=== PATIENT | female | born 1945 ===

== ENCOUNTER 2016-11-05 12:07 | Inpatient (IN) | payer OTHER, MEDICARE ==
--- NOTE | 2016-11-05 12:17 | ED PDOC ---
HPI: General Adult Time Seen by Provider: 11/05/16 12:16 Chief Complaint (Nursing): Trauma Chief Complaint (Provider): fall History Per: Patient, EMS Additional Complaint(s): 70 year old female presents to ED for eval of fall this morning. Patient was walking into a store when she tripped on a step in the entrance way falling backward. She injured her head, low back and left hip. Fall was witnessed by her daughter and grandson and she did not sustain LOC. She denies dizziness or syncope prior to fall. Patient arrives via ambulance and has been unable to walk since time of fall. Past Medical History Reviewed: Historical Data, Nursing Documentation, Vital Signs Vital Signs: Last Vital Signs Temp 98 F 11/06/16 09:31 Pulse 73 11/06/16 09:31 Resp 20 11/06/16 09:31 BP 97/58 L 11/06/16 09:31 Pulse Ox 97 11/06/16 09:31 - Medical History PMH: Hypercholesterolemia, Hypothyroidism, Osteoporosis - Surgical History Surgical History: Appendectomy, Cholecystectomy, Hernia Repair Other surgeries: bilateral knee replacement - Family History Family History: States: No Known Family Hx - Living Arrangements Living Arrangements: With Family - Social History Current smoker - smoking cessation education provided: No Alcohol: None Drugs: Denies - Home Medications Home Medications: Ambulatory Orders Medication Instructions Recorded Alendronate Sodium [Binosto] 70 mg PO QWK 10/21/14 Aspirin [Aspirin EC] 81 mg PO DAILY 10/21/14 Levothyroxine Sodium 100 mcg PO ACB 10/21/14 Atorvastatin [Lipitor] 10 mg PO HS 11/05/16 Bismuth Subsalicylate [Pepto 262 mg PO DAILY PRN 11/05/16 Bismol] Dorzolamide HCl/Timolol Maleat 1 drop OU BID 11/05/16 [Dorzolamide-Timolol Eye Drops] Ergocalciferol (Vitamin D2) 50,000 unit PO QWK 11/05/16 [Vitamin D2] Latanoprost 0.005% Opht [Xalatan 1 drop OU HS 11/05/16 Opht] Loperamide [Imodium] 2 mg PO TID PRN 11/05/16 Montelukast [Singulair] 10 mg PO DAILY 11/05/16 Nabumetone [Relafen] 500 mg PO BID PRN 11/05/16 Wayan-3 Fatty Acids/Fish Oil [Eql 1 cap PO BID 11/05/16 Wayan-3 Fish Oil 1,000 mg] Omeprazole 40 mg PO DAILY 11/05/16 Oxybutynin XL [Ditropan XL] 5 mg PO DAILY 11/05/16 - Allergies Allergies/Adverse Reactions: Allergies Allergy/AdvReac Type Severity Reaction Status Date / Time No Known Allergies Allergy Verified 10/21/14 20:31 Review of Systems ROS Statement: Except As Marked, All Systems Reviewed And Found Negative Cardiovascular: Negative for: Chest Pain Gastrointestinal: Negative for: Nausea Musculoskeletal: Positive for: Other (low back pain, left hip pain s/p fall) Neurological: Positive for: Other (head injury with no LOC s/p trip and fall, denies dizziness or syncope prior to fall) Physical Exam - Reviewed Nursing Documentation Reviewed: Yes Vital Signs Reviewed: Yes - Physical Exam Appears: Positive for: Well, Non-toxic, No Acute Distress Head Exam: Positive for: ATRAUMATIC, NORMAL INSPECTION Skin: Negative for: Rash Eye Exam: Positive for: Normal appearance, EOMI, PERRL Neck: Positive for: Normal, Painless ROM, Supple. Negative for: Pain On Movement Of Neck Cardiovascular/Chest: Positive for: Regular Rate, Rhythm Respiratory: Positive for: Normal Breath Sounds. Negative for: Respiratory Distress Gastrointestinal/Abdominal: Positive for: Soft. Negative for: Tenderness, Distended, Guarding Back: Positive for: Vertebral Tenderness (lumbar region) Extremity: Positive for: Other (tenderness left lateral hip with decreased ROM, normal distal sensation left lower extremity) Neurologic/Psych: Positive for: Alert, Oriented - Laboratory Results Result Diagrams: 11/05/16 17:07 11/05/16 17:07 - ECG O2 Sat by Pulse Oximetry: 98 Pulse Ox Interpretation: Normal - Other Rad CT head X-Ray: Read By Radiologist X-Ray Interpretation: normal head CT L/S Spine X-ray X-Ray: Interpreted by Me, Viewed By Me X-Ray Interpretation: marked degenerative changes, no fx, no dis Left hip and pelvis x-ray X-Ray: Interpreted by Me, Viewed By Me X-Ray Interpretation: no fx, no dis CT L/S Spine X-Ray: Read By Radiologist X-Ray Interpretation: see below CT left hip X-Ray: Read By Radiologist X-Ray Interpretation: see below Medical Decision Making Medical Decision Makin70 year old here for eval s/p trip and fall Plan: PO tylenol CT head L/S Spine X-ray Left hip and pelvis x-ray X-rays do not show obvious fracture or dislocation but patient cannot put any weight on left leg, has h/o osteoporosis. CT lumbar spine, pelvis and left hip ordered to rule out occult fracture. Patient states tylenol did not help the pain, she was given toradol [address] Left hip: FINDINGS: Bones/joints: There is a fracture through the right pubic body. Soft tissues: There is a hematoma in the left iliacus muscle. IMPRESSION: Fracture of the right pubic body. The fracture may be the source of the hematoma in the left iliacus muscle. A CT scan of the entire pelvis might be helpful. CT LS Spine: FINDINGS: Vertebrae: There is a fracture through the anterior wall of the left sacral ala. No fractures in the lumbar spine. The vertebral body heights are maintained. Normal alignment. Discs/spinal canal/neural foramina: No acute findings. No spinal canal stenosis. Soft tissues: Unremarkable. IMPRESSION: 1. Fracture of the left sacral ala. 2. No lumbar spine fracture. Fracture noted. IV established, labs drawn, patient was given 4 mg IV morphine and 4 mg IV zofran as well as IVF. PMD is Dr. Bipin Noe in [place] whose patients are admitted by Dr. Pedroza. I spoke with Dr. Pedroza and he states to admit patient to med/surg. Case was discussed with ortho group controller, Dr. Sheppard who will see patient while she is admitted. Dedicated CT pelvis order further eval of pubic bone fracture. Cortes catheter ordered along with UA and Urine culture. Disposition - Clinical Impression Clinical Impression: Pubic bone fracture, Sacral fracture - Patient ED Disposition Is Patient to be Admitted: Yes - Disposition Disposition Time: 17:04 Condition: FAIR - Pt Status Changed To: Hospital Disposition Of: Inpatient - Admit Certification Admit to Inpatient:: After my assessment, the patient will require hospitalization for at least two midnights. This is because of the severity of symptoms shown, intensity of services needed, and/or the medical risk in this patient being treated as an outpatient. - POA Present On Arrival: None Results - Lab Results Lab Results: 11/05/16 11/05/16 11/05/16 18:11 17:07 17:07 WBC 19.1 H D RBC 4.43 Hgb 13.3 Hct 39.4 MCV 88.9 MCH 30.0 MCHC 33.8 RDW 13.5 Plt Count 228 MPV 8.5 Neut % (Auto) 82.3 H Lymph % (Auto) 12.4 L [place] % (Auto) 4.5 Eos % (Auto) 0.1 Baso % (Auto) 0.7 Neut # 15.7 H Lymph # 2.4 [place] # 0.9 H Eos # 0.0 Baso # 0.1 Sodium 139 Potassium 4.0 Chloride 109 H Carbon Dioxide 20 L Anion Gap 14 BUN 16 Creatinine 0.5 L Est GFR ( Amer) > 60 Est GFR (Non-Af Amer) > 60 Random Glucose 165 H Calcium 9.2 Total Bilirubin 1.4 H AST 55 H D ALT 51 Alkaline Phosphatase 63 Total Protein 7.0 Albumin 4.0 Globulin 3.1 Albumin/Globulin Ratio 1.3 Urine Color Yellow Urine Clarity Slighty-cloudy Urine pH 5.0 Ur Specific [place] 1.021 Urine Protein Negative Urine Glucose (UA) Neg Urine Ketones Trace Urine Blood Moderate Urine Nitrate Positive H Urine Bilirubin Negative Urine Urobilinogen 0.2-1.0 Ur Leukocyte Esterase Neg Urine RBC (Auto) 2 Urine Microscopic WBC < 1 Ur Squamous Epith Cells < 1 Urine Bacteria Occ H
--- NOTE | 2016-11-05 13:24 | CT ---
PROCEDURE: CT HEAD WITHOUT CONTRAST. HISTORY: trauma COMPARISON: None available. TECHNIQUE: Axial computed tomography images were obtained through the head/brain without intravenous contrast. Radiation dose: Total exam DLP = 846 mGy-cm. This CT exam was performed using one or more of the following dose reduction techniques: Automated exposure control, adjustment of the mA and/or kV according to patient size, and/or use of iterative reconstruction technique. FINDINGS: HEMORRHAGE: No intracranial hemorrhage. BRAIN: No mass effect or edema. No atrophy or chronic microvascular ischemic changes. VENTRICLES: Unremarkable. No hydrocephalus. CALVARIUM: Unremarkable. PARANASAL SINUSES: Unremarkable as visualized. No significant inflammatory changes. MASTOID AIR CELLS: Unremarkable as visualized. No inflammatory changes. OTHER FINDINGS: None. IMPRESSION: Normal CT of the Head.
--- NOTE | 2016-11-05 15:14 | RAD ---
HISTORY: trauma COMPARISON: No prior FINDINGS: BONES: Normal. No fracture. JOINTS: Normal. No osteoarthritis. SOFT TISSUE: Normal. OTHER FINDINGS: None . IMPRESSION: Normal Bone Xray.
--- NOTE | 2016-11-05 15:16 | RAD ---
HISTORY: trauma COMPARISON: No prior FINDINGS: BONES: Normal. No fracture. JOINTS: Normal. No osteoarthritis. SOFT TISSUE: Normal. OTHER FINDINGS: None . IMPRESSION: Normal Bone Xray.
[2016-11-05] MEDS ORDERED: Sodium Chloride 0.9% 1,000 ML IV STA (16:54)
[2016-11-05 17:11] LABS: BASO # 0.1 K/uL (0.0-0.2); BASO % 0.7 % (0.0-2.0); EOS % 0.1 % (0.0-4.0); HEMATOCRIT 39.4 % (34.0-47.0); LYMPH # 2.4 K/uL (1.0-4.3); LYMPH % 12.4 % (20.0-40.0); MEAN CELL VOLUME 88.9 fl (81.0-99.0); MEAN CORPUSCULAR HGB CONC 33.8 g/dL (33.0-37.0); MEAN PLATELET VOLUME 8.5 fl (7.2-11.7); MONO # 0.9 K/uL (0.0-0.8); MONO % 4.5 % (0.0-10.0); NEUT # 15.7 K/uL (1.8-7.0); NEUT % 82.3 % (50.0-75.0); NRBC % 0.2 % (0.0-0.0); RED CELL DISTRIBUTION WIDTH 13.5 % (11.5-14.5); WHITE BLOOD COUNT 19.1 K/uL (4.8-10.8)
[2016-11-05 17:32] LABS: ALB/GLOB RATIO 1.3 (1.0-2.1); ALKALINE PHOSPHATASE 63 U/L (38-126); ALT/SGPT 51 U/L (9-52); AST/SGOT 55 U/L (14-36); BILIRUBIN,TOTAL 1.4 mg/dl (0.2-1.3); BLOOD UREA NITROGEN 16 mg/dl (7-17); CALCIUM 9.2 mg/dL (8.4-10.2); CARBON DIOXIDE 20 mmol/L (22-30); CHLORIDE 109 mmol/L (98-107); GFR AFRICAN-AMERICAN > 60; GLUCOSE,RANDOM 165 mg/dL (65-105); SODIUM 139 mmol/l (132-148)
[2016-11-05 18:45] LABS: RBC URINE 2 /hpf (0-3); URINE BACTERIA OCC (<OCC); URINE BILIRUBIN NEGATIVE (NEGATIVE); URINE BLOOD MODERATE (NEGATIVE); URINE COLOR YELLOW (YELLOW); URINE GLUCOSE (UA) NEG (Normal); URINE KETONE TRACE mg/dL (NEGATIVE); URINE LEUKOCYTE ESTERASE NEG Leu/uL (Negative); URINE PROTEIN NEGATIVE (NEGATIVE); URINE UROBILINOGEN 0.2-1.0 mg/dL (0.2-1.0); WBC URINE < 1 /hpf (0-5)
[2016-11-05] MEDS ORDERED: Bismuth Subsalicylate 262 mg Chew Tab PO PRN (22:33)
[2016-11-05] MEDS ORDERED: ALENDRONATE SODIUM 70 MG PO SCH (22:45)
[2016-11-05] MEDS ORDERED: Nabumetone 500 MG TAB PO PRN (22:46)
[2016-11-05] MEDS ORDERED: ALENDRONATE 70 MG TAB PO SCH (23:15)
[2016-11-06] MEDS: Sodium Chloride 0.9% 1,000 ML IV SCH ×3 (00:38→18:34)
[2016-11-06] MEDS: Morphine 4 MG/ML VIAL IVP PRN ×2 (07:20→16:19)
--- NOTE | 2016-11-06 08:39 | CT ---
PROCEDURE: HISTORY: fall, assess for occult pelvis or hip fracture COMPARISON: TECHNIQUE: Radiation dose 617 mGy FINDINGS: Fracture of the right pubic body with hematoma in the left iliacus muscle. IMPRESSION: As above.
--- NOTE | 2016-11-06 08:44 | CT ---
PROCEDURE: CT Lumbar Spine without contrast HISTORY: fall, assess for occult fracture COMPARISON: None. TECHNIQUE: Axial computed tomography images were obtained of the lumbar spine without the use of intravenous contrast. Coronal and sagittal reformatted images were created and reviewed. Radiation dose: Total exam DLP = 1322 mGy-cm. This CT exam was performed using one or more of the following dose reduction techniques: Automated exposure control, adjustment of the mA and/or kV according to patient size, and/or use of iterative reconstruction technique. FINDINGS: VERTEBRAE: Unremarkable. No fracture. Normal alignment. DISCS/SPINAL CANAL/NEURAL FORAMINA: L1-2: Unremarkable. L2-3: Unremarkable. L3-4: Unremarkable. L4-5: Unremarkable. L5-S1: Unremarkable. PARASPINAL SOFT TISSUES: Unremarkable. OTHER FINDINGS: Question left sacral sacral alae fractures. Correlate with MRI if clinically indicated.. IMPRESSION: Question left sacral sacral alae fractures. Correlate with MRI if clinically indicated..
[2016-11-06] MEDS ORDERED: FISH OIL PO SCH (09:00)
[2016-11-06] MEDS ORDERED: FATTY ACIDS PO SCH (09:00)
[2016-11-06] MEDS ORDERED: Patient's Own Med (Omeprazole [Omeprazole] 40 MG) PO SCH (09:00)
[2016-11-06] MEDS ORDERED: OMEGA PO SCH (09:00)
[2016-11-06] MEDS ORDERED: Patient's Own Med (Dorzolamide Hcl/Timolol Maleat [Dorzolamide-Timolol Eye Drops] 1 DROP) OU SCH (09:00)
--- NOTE | 2016-11-06 09:09 | CT ---
PROCEDURE: CT Pelvis without contrast HISTORY: Sacral fx, pelvic fx COMPARISON: None. TECHNIQUE: Contiguous axial images of the pelvis . No intravenous or oral contrast given. Coronal and sagittal reformats generated. Radiation dose: Total exam DLP = mGy-cm. This CT exam was performed using one or more of the following dose reduction techniques: Automated exposure control, adjustment of the mA and/or kV according to patient size, and/or use of iterative reconstruction technique. FINDINGS: BLADDER: Cortes catheter in the bladder. No mass. REPRODUCTIVE ORGANS: Unremarkable. VISUALIZED BOWEL: Unremarkable. PERITONEUM: Unremarkable, as visualized. No free fluid. No free air. LYMPH NODES: Unremarkable. No enlarged lymph nodes. BONES: No fracture or focal lesion. VASCULATURE: Unremarkable. OTHER FINDINGS: Large left iliacus muscle hematoma.. IMPRESSION: Large left iliacus muscle hematoma. Node gross fracture.
--- NOTE | 2016-11-06 09:45 | RAD ---
HISTORY: clearance COMPARISON: No prior. FINDINGS: LUNGS: No active pulmonary disease. PLEURA: No significant pleural effusion identified, no pneumothorax apparent. CARDIOVASCULAR: Normal. OSSEOUS STRUCTURES: No significant abnormalities. VISUALIZED UPPER ABDOMEN: Normal. OTHER FINDINGS: None. IMPRESSION: No active disease.
--- NOTE | 2016-11-06 09:46 | RAD ---
PROCEDURE: Radiographs of the Lumbar Spine. HISTORY: trauma COMPARISON: No prior. FINDINGS: BONES: Normal alignment. No listhesis. Mild compression deformity of L1 of indeterminate age. DISC SPACES: Unremarkable. OTHER FINDINGS: None. IMPRESSION: Mild compression deformity of L1 of indeterminate age.
[2016-11-06] MEDS: Omega-3-Acid Ethyl Esters 1 GM Cap PO SCH ×2 (10:09→18:32)
[2016-11-06] MEDS: Enoxaparin 40 mg Syringe SC SCH (10:09)
[2016-11-06] MEDS: Levothyroxine 100 MCG TAB PO SCH (10:10)
[2016-11-06] MEDS: Pantoprazole 40 mg EC Tab PO SCH (10:10)
[2016-11-06] MEDS: Dorzolamide 2% Ophth Soln OU SCH ×3 (10:12→18:32)
--- NOTE | 2016-11-06 13:14 | CARD ---
APPROVED REPORT EKG Measurement Heart [id number] NM [id number] [id number] <Conclusion> Normal sinus rhythm Normal ECG
--- NOTE | 2016-11-06 13:28 | HP ---
CHIEF COMPLAINT: Hip pain. HISTORY OF PRESENT ILLNESS: This is a 70-year-old female who had a fall after slipping on stairs. So, the patient was brought to the emergency room. There, after workup, patient was found to have a fracture of pelvis, and was admitted for further management. REVIEW OF SYSTEMS: Positive for pain. Review of systems otherwise is negative for headache, dizziness, syncope, loss of consciousness, chest pain, shortness of breath, nausea, vomiting, diarrhea, or constipation. No new neurological symptoms. Review of systems of all other organ system is unremarkable. PAST MEDICAL HISTORY: Significant for hypothyroidism, elevated cholesterol, osteoporosis and obesity. PAST SURGICAL HISTORY: Remarkable for hernia, appendectomy and cholecystectomy and also a knee surgery. PERSONAL HISTORY: The patient is a nonsmoker, nondrinker. No substance abuse. MEDICATIONS: The patient is on multiple medications, which are as per the reconciliation sheet, which is reviewed and ordered. ALLERGIES: THE PATIENT IS NOT ALLERGIC TO ANY MEDICATION. FAMILY HISTORY: Noncontributory. PHYSICAL EXAMINATION: GENERAL: Well-developed, well-nourished, overweight 70-year-old female, in no acute distress, but in discomfort due to pain. VITAL SIGNS: Temperature 97.6, pulse 90, respirations 17, and blood pressure 127/70. HEENT: Pupils are reacting to light. No nystagmus. Normocephalic and atraumatic scalp. NECK: No JVD. No thyromegaly. No lymphadenopathy. HEART: S1 and S2 normal and regular. No significant murmur, gallop, or rub is heard. LUNGS: Show good bilateral air entry. No rales or rhonchi. ABDOMEN: Soft and nontender. No organomegaly. No fluid. Bowel sounds are present. EXTREMITIES: No edema. No calf swelling or tenderness. No acute ischemia. CENTRAL NERVOUS SYSTEM: Essentially unchanged. DIAGNOSTIC DATA: Available diagnostic data reviewed. pain. Sodium 139, potassium 4.0, chloride 109, bicarbonate 20, BUN 16, creatinine 0.5. SMA-12 shows AST of 55. WBC 19, hemoglobin 13.3, hematocrit 39.4, platelet 228. X-ray report as per emergency room physician is consistent with pubic bone fracture. ADMITTING IMPRESSION: Pubic bone fracture, status post fall, hypercholesterolemia, hypothyroidism. PLAN: As ordered. Case and plan discussed with the patient and the patient's daughter and the patient's granddaughter at length. Cedric Pedroza MD
[2016-11-06] MEDS: Latanoprost 0.005% Opht SOUTION OU SCH (22:11)
[2016-11-07] MEDS: Sodium Chloride 0.9% 1,000 ML IV SCH ×4 (02:15→23:14)
[2016-11-07] MEDS: Levothyroxine 100 MCG TAB PO SCH (06:42)
[2016-11-07] MEDS: Morphine 4 MG/ML VIAL IVP PRN ×2 (10:03→16:23)
[2016-11-07] MEDS: Omega-3-Acid Ethyl Esters 1 GM Cap PO SCH ×2 (10:06→16:19)
[2016-11-07] MEDS: Pantoprazole 40 mg EC Tab PO SCH (10:07)
[2016-11-07] MEDS: Enoxaparin 40 mg Syringe SC SCH (10:07)
[2016-11-07] MEDS: Dorzolamide 2% Ophth Soln OU SCH ×3 (10:08→16:19)
--- NOTE | 2016-11-07 10:19 | MRI ---
MRI bony pelvis History: Fracture deformities. Comparison: 11/06/2016 Technique: Multi-echo multiplanar sequences were performed through the bony pelvis without the use of intravenous contrast. Findings: Prominent signal abnormality seen within the left hemisacrum with curvilinear decreased T1 and increased STIR signal consistent with a sacral fracture. Fracture deformity of the posterior inferior and posterior superior left pubic bone with reactive edema. Fracture deformity noted of the anterior superior right pubic bone near the pubic symphysis. Reactive edema extends to the pubic symphysis. Additional reactive bone marrow edema seen within the mid inferior right pubic bone which may represent nondisplaced osseous injury. Hemorrhage and edema seen within the left iliopsoas musculature were there is prominent asymmetric thickening and hypertrophy of the left iliopsoas muscle belly measuring up to 8.5 x 4.7 centimeters. Reactive edema within the left flank soft tissues. Prominent edema and/or partial tearing seen within the bilateral pelvic floor musculature. Bilateral hip joints appear grossly preserved. Moderate insertional tendinopathy of the gluteus tendons bilaterally. Impression: 1. Prominent signal abnormality seen within the left hemisacrum with curvilinear decreased T1 and increased STIR signal consistent with a sacral fracture. 2. Fracture deformity of the posterior inferior and posterior superior left pubic bone with reactive edema. 3. Fracture deformity noted of the anterior superior right pubic bone near the pubic symphysis. Reactive edema extends to the pubic symphysis. 4. Additional reactive bone marrow edema seen within the mid inferior right pubic bone which may represent nondisplaced osseous injury. 5. Hemorrhage and edema seen within the left iliopsoas musculature were there is prominent asymmetric thickening and hypertrophy of the left iliopsoas muscle belly measuring up to 8.5 x 4.7 centimeters. 6. Reactive edema within the left flank soft tissues. 7. Prominent edema and/or partial tearing seen within the bilateral pelvic floor musculature. 8. Moderate insertional tendinopathy of the gluteus tendons bilaterally.
--- NOTE | 2016-11-07 14:11 | PN ---
DATE: 11/07/2016 SUBJECTIVE: The patient seen and examined. Interim events noted. Orthopedic consult is pending. The patient pain is improved, but complains of no chest pain or shortness of breath. PHYSICAL EXAMINATION GENERAL: The patient is in no acute distress. VITAL SIGNS: Stable. HEART: S1 and S2 normal and regular. LUNGS: Good bilateral air exchange. ABDOMEN: Soft and nontender. EXTREMITIES: No edema. No calf swelling or tenderness. No acute ischemia. CENTRAL NERVOUS SYSTEM: Essentially unchanged. There is no cyanosis, any acute distal neurovascular compromise. DIAGNOSTIC DATA: Available. Diagnostic data reviewed. ASSESSMENT AND PLAN: Overall, the patient is slowly improving. Plan as ordered. Cedric Pedroza MD
[2016-11-07] MEDS: Latanoprost 0.005% Opht SOUTION OU SCH (22:30)
[2016-11-08] MEDS: Levothyroxine 100 MCG TAB PO SCH (06:55)
[2016-11-08 07:09] LABS: HEMATOCRIT 27.1 % (34.0-47.0); MEAN CORPUSCULAR HEMOGLOBIN 30.6 pg (27.0-31.0); MEAN CORPUSCULAR HGB CONC 33.9 g/dL (33.0-37.0); RED CELL DISTRIBUTION WIDTH 13.6 % (11.5-14.5); WHITE BLOOD COUNT 7.7 K/uL (4.8-10.8)
[2016-11-08 07:22] LABS: BLOOD UREA NITROGEN 7 mg/dl (7-17); CALCIUM 8.1 mg/dL (8.4-10.2); CARBON DIOXIDE 25 mmol/L (22-30); CHLORIDE 109 mmol/L (98-107); GFR AFRICAN-AMERICAN > 60; GLUCOSE,RANDOM 112 mg/dL (65-105); POTASSIUM 3.5 MMOL/L (3.6-5.0); SODIUM 141 mmol/l (132-148)
[2016-11-08 07:34] LABS: T4 9.59 ug/dl (5.5-11.0)
[2016-11-08 07:47] LABS: THYROID STIMULATING HORMONE 6.87 mIU/ML (0.46-4.68)
[2016-11-08] MEDS: Enoxaparin 40 mg Syringe SC SCH (08:25)
[2016-11-08] MEDS: Omega-3-Acid Ethyl Esters 1 GM Cap PO SCH ×2 (08:26→17:13)
[2016-11-08] MEDS: Pantoprazole 40 mg EC Tab PO SCH (08:26)
[2016-11-08] MEDS: Dorzolamide 2% Ophth Soln OU SCH ×3 (08:27→17:13)
[2016-11-08] MEDS: Morphine 4 MG/ML VIAL IVP PRN ×2 (08:30→13:30)
[2016-11-08] MEDS ORDERED: Potassium Chloride 20 mEq ER Tab PO ONE (10:47)
--- NOTE | 2016-11-08 12:02 | CP.PCM.PCO ---
Assessment/Plan - Assessment/Plan Assessment (Free Text): Discussed with Dr. Dewey Daly yesterday regarding WB status. Pt will not have any surgical intervention, however, pt should have protective weight or TTWB to b/l LEs. Pt will need DOROTA placement. Orders entered for PT. Dr. Pedroza aware. - Problems Patient Problems: Problem List (Active/Current) Problem Status Onset Code Pubic bone fracture Acute S32.509A Sacral fracture Acute S32.10XA
--- NOTE | 2016-11-08 14:50 | PQF GENQUE ---
Dr. Pedroza, Is there an associated dx. to go along with the following lab: urine C&S:final report: E-Coli OR: Disagree OR: Unable to determine IV: Rocephin This form is a permanent part of the medical record Clarification of your documentation is requested to better reflect the severity of illness and intensity of treatment of your patient. Indicators present [] Specify: [] [] Specify: [] [] Specify: [] [] Specify: [] Location in the medical record that reflects the above clinical findings: [] Treatment Provided: [] PHYSICIAN'S RESPONSE Based on your medical judgment of the clinical indicators outlined above please clarify the following: [] Practitioner response [] If unable to determine, please check the box, sign and date. Present On Admission (POA) Indicator: [] Present at the time of admission [] Not present at the time of admission [] Clinically Undetermined In responding to this query, please exercise your independent professional judgment. The fact that a question is asked does not imply that any particular answer is desired or expected. Thank you for your clarification on this documentation. If you have any questions please call. * Thank you, Mela Lomax RN BSN ext. #[phone] MTDD
--- NOTE | 2016-11-08 15:07 | CP.PCM.PN ---
Subjective - Date & Time of Evaluation Date of Evaluation: 11/08/16 Time of Evaluation: 02:50 - Subjective Subjective: full consult by Dr. Dewey Daly to follow,pt seen c/o left groin pain worse with movement,partially alleviated with pain meds and rest,OOB to chair,denies paresthesias Objective - Vital Signs/Intake and Output Vital Signs (last 24 hours): Temp Pulse Resp BP Pulse Ox 97.9 F 77 20 131/71 98 11/08/16 08:47 11/08/16 08:47 11/08/16 08:47 11/08/16 08:47 11/08/16 08:47 Intake and Output: 11/08/16 11/08/16 06:59 18:59 Output Total 300 Balance -300 - Medications Medications: Current Medications Acetaminophen (Tylenol 325mg Tab) 650 mg PO Q4 PRN PRN Reason: Pain, moderate (4-7) Last Admin: 11/07/16 14:39 Dose: 650 mg Alendronate Sodium (Fosamax) 70 mg PO QWK [facility] [place] Aspirin (Ecotrin) 81 mg PO DAILY [facility] Last Admin: 11/08/16 08:27 Dose: 81 mg Atorvastatin Calcium (Lipitor) 10 mg PO HS [facility] Last Admin: 11/07/16 22:30 Dose: 10 mg Bismuth Subsalicylate (Pepto Bismol) 262 mg PO DAILY PRN PRN Reason: Heartburn Dorzolamide HCl (Trusopt) 1 drop OU TID [facility] [place] Last Admin: 11/08/16 13:54 Dose: 1 u Enoxaparin Sodium (Lovenox) 40 mg SC DAILY [facility] [place] PRN Reason: Protocol Last Admin: 11/08/16 08:25 Dose: 40 mg Ergocalciferol (Drisdol 50,000 Intl Units Cap) 1 cap PO QWK [facility] Ceftriaxone Sodium 1 gm/ (Sodium Chloride) 100 mls @ 100 mls/hr IVPB DAILY [facility] [place] Last Admin: 11/08/16 08:24 Dose: 100 mls/hr Latanoprost (Xalatan Opht) 1 drop OU HS [facility] [place] Last Admin: 11/07/16 22:30 Dose: 1 drop Levothyroxine Sodium (Synthroid) 100 mcg PO ACB [facility] [place] Last Admin: 11/08/16 06:55 Dose: 100 mcg Loperamide HCl (Imodium) 2 mg PO TID PRN PRN Reason: Diarrhea Montelukast Sodium (Singulair) 10 mg PO DAILY [facility] [place] Last Admin: 11/08/16 08:27 Dose: 10 mg Morphine Sulfate (Morphine) 4 mg IVP Q6 PRN PRN Reason: Pain, severe (8-10) Last Admin: 11/08/16 13:30 Dose: 4 mg Nabumetone (Relafen) 500 mg PO BID PRN PRN Reason: Arthritis Last Admin: 11/06/16 18:49 Dose: 500 mg [id number] Ethyl Esters (Lovaza) 1 gm PO BID [facility] [place] [place] Last Admin: 11/08/16 08:26 Dose: 1 gm Oxybutynin Chloride (Ditropan Tab) 5 mg PO DAILY [facility] [place] Last Admin: 11/08/16 08:28 Dose: 5 mg Pantoprazole Sodium (Protonix Ec Tab) 40 mg PO DAILY [facility] Last Admin: 11/08/16 08:26 Dose: 40 mg Timolol Maleate (Timoptic 0.5% Oph Soln) 1 drop OU BID [facility] [place] Last Admin: 11/08/16 08:27 Dose: 1 u - Labs Labs: 11/08/16 06:00 11/08/16 06:00 - Constitutional Appears: Well, Non-toxic - Head Exam Head Exam: ATRAUMATIC, NORMAL INSPECTION, NORMOCEPHALIC - Eye Exam Eye Exam: Normal appearance - ENT Exam ENT Exam: Mucous Membranes Moist - Respiratory Exam Respiratory Exam: Clear to Ausculation Bilateral - Cardiovascular Exam Cardiovascular Exam: REGULAR RHYTHM - GI/Abdominal Exam GI & Abdominal Exam: Soft Additional comments: + left anterior pelvic pain to palpation - Extremities Exam Additional comments: restricted hip motion secondary to pain,+ knee flexion and extension,+ plantar and dorsi flexion with good strength,sensation intact,calves soft NT,+2 pulses - Neurological Exam Neurological Exam: Alert, Oriented x3 - Psychiatric Exam Psychiatric exam: Normal Affect, Normal Mood - Skin Skin Exam: Dry, Intact Assessment and Plan - Assessment and Plan (Free Text) Assessment: 70 yo female with Left Superior and Inferior Rami Fx s/p trip and fall,Stable, Hx HLD,Hypothyroidism,OA Plan: fx is non operative,pt to be TTWB with asst,stable from orthopedic standpoint for d/c to rehab,cont daily ASA,f/u with Dr. Dewey Daly in 2 weeks in office, pain control as needed,medical management per primary team.
[2016-11-08 15:49] VITALS: BP 112/68; PULSE 75; RESP 18; TEMP 98.4; O2SAT 95
[2016-11-11] MEDS ORDERED: Ergocalciferol 50,000 Intl Units Cap PO SCH (22:45)
== END 2016-11-08 18:36 | DRG 236 ==
LOC: H.ER 12:07 → H.ERHOLD 17:05 → H.MEDSURG1 20:28
PROVIDERS: ADMIT Internal Medicine; ATTEND Internal Medicine
DX: S32.592A Other specified fracture of left pubis, initial encounter for closed fracture (principal); S32.10XA Unspecified fracture of sacrum, initial encounter for closed fracture; N39.0 Urinary tract infection, site not specified; W10.9XXA Fall (on) (from) unspecified stairs and steps, initial encounter; W01.0XXA Fall on same level from slipping, tripping and stumbling without subsequent striking against object, initial encounter; E03.9 Hypothyroidism, unspecified; E78.00 Pure hypercholesterolemia, unspecified; E78.5 Hyperlipidemia, unspecified; M81.0 Age-related osteoporosis without current pathological fracture; Z79.82 Long term (current) use of aspirin; Z79.899 Other long term (current) drug therapy; Z96.653 Presence of artificial knee joint, bilateral; E66.9 Obesity, unspecified; Z68.29 Body mass index [BMI] 29.0-29.9, adult; R26.2 Difficulty in walking, not elsewhere classified